=== PATIENT | female | born 1970 | race Caucasian/White ===

== ENCOUNTER 2016-09-16 14:51 | Emergency (ER) | payer MEDICAID ==
[~2016-09-16] VITALS: Ht 154.9 cm; Wt 58.1 kg
[~2016-09-16 14:51] MED LIST: BISA10SU45 RE; DOC100C PO; NORPTMEDS CO; PEGSOL PO
[2016-09-16 14:56] VITALS: BP 122/62
[2016-09-16] MEDS ORDERED: KETOROLAC TROMETH 60MG/2ML VIAL IM ONE (16:15)
[2016-09-16] MEDS ORDERED: METHOCARBAMOL 500 MG TAB PO ONE (16:15)
== END 2016-09-16 17:16 | disposition home or self-care (01) ==
LOC: ER 14:54
DX: M43.6 Torticollis (principal)
CPT/HCPCS: 72040; 96372; 99284; J1885